=== PATIENT | female | born 1990 | race Caucasian/White ===

== ENCOUNTER → 2016-09-12 | Outpatient (CLI) | payer OTHER ==
[~2016-09-12] MED LIST: FLAX100019 PO; NORG1TAB23 PO; OMEG10007 PO
== END | disposition home or self-care (01) ==
LOC: C.MAMM 08:57
PROVIDERS: ATTEND Internal Medicine Gastroenterology
DX: K50.10 Crohn's disease of large intestine without complications (principal); Z79.52 Long term (current) use of systemic steroids

== ENCOUNTER → 2017-11-23 | Outpatient (CLI) | payer OTHER ==
--- NOTE | 2017-11-23 19:58 | DIAGNOSTIC IMAGING REPORT ---
R LOWER EXT NONJOINT WITHOUT CLINICAL HISTORY: 27 years-old Female presenting with RIGHT CALF PAIN. TECHNIQUE: Multisequence, multiplanar MR imaging of the right lower leg was performed without the use of intravenous contrast. IV contrast: None. COMPARISON: None. FINDINGS: Localizer images: Unremarkable. No bony edema. Normal T1 hyperintensity of bone marrow. Mild edema noted along the anterior cortex and of the mid to distal tibia with associated mild subcutaneous edema (series 9 image 35). No abnormal cortical signal intensity. Normal muscle bulk and muscle signal intensity. No gross evidence of a knee joint effusion. Knee joint and ankle mortise grossly congruent. IMPRESSION: Findings consistent with grade 1 medial tibial stress syndrome. No bone marrow edema or fracture. Electronically signed by: Daniele Sheets M.D. 11/23/2017 7:57 PM Dictated Date/Time: 11/23/2017 7:53 PM
== END | disposition home or self-care (01) ==
LOC: C.MRI 17:49
PROVIDERS: ATTEND Family Medicine Sports Medicine
DX: M84.361D Stress fracture, right tibia, subsequent encounter for fracture with routine healing (principal)